=== PATIENT | female | born 1970 | race Caucasian/White ===

== ENCOUNTER 2017-11-17 19:42 | Emergency (ER) | payer OTHER ==
[~2017-11-17] VITALS: Ht 175.3 cm; Wt 95.2 kg
[~2017-11-17 19:42] MED LIST: FLEXERIL10 MG PO; NAPROXEN500 MG PO; ZOFRAN ODT4 MG PO
[2017-11-17] MEDS ORDERED: PHENTERMINE HCL15 MG PO (19:51)
[2017-11-17] MEDS ORDERED: METFORMIN HCL500 MG PO (19:51)
[2017-11-17] MEDS ORDERED: NORCO 5-325 TA1 EACH PO (23:07)
[2017-11-17] MEDS ORDERED: AMOXICILLIN875 MG PO (23:07)
== END 2017-11-17 23:25 | disposition home or self-care (01) ==
LOC: ED 19:42
DX: J02.0 Streptococcal pharyngitis (principal); Z87.891 Personal history of nicotine dependence; Z79.84 Long term (current) use of oral hypoglycemic drugs; Z79.899 Other long term (current) drug therapy
CPT/HCPCS: 87880; 99283